=== PATIENT | male | born 1955 | race Caucasian/White ===

== ENCOUNTER 2021-08-03 19:28 | Emergency (ER) | payer MEDICARE, OTHER ==
[~2021-08-03] VITALS: Ht 185.4 cm; Wt 88.6 kg
[2021-08-03 19:30] VITALS: BP 156/99
--- NOTE | 2021-08-03 19:57 | PHYS DOC ---
Past History Past Medical History: High Cholesterol, Hypertension Adult General Chief Complaint Chief Complaint: HEADACHE HPI HPI Patient is a 66-year-old male presenting for weakness and fatigue. Patient has history of high blood pressure and high cholesterol only and [facility] States he was unvaccinated against COVID-19 and tested +18 days ago. Reports he had significant URI symptoms that self improved after approximately 10 days. Reports he had recurrence of such upper respiratory symptoms past 72 hours in addition to new onset fatigue, weakness and exertional dyspnea. Reports he has just been more fatigued than usual, admits he is typically fully functional and able to perform activities of daily living but now, states he gets extremely winded walking 100 yards to his mailbox which is not typical for him. He has no other significant medical issues, no ot her recent changes in baseline health or medications at home. He has no history of heart disease or provocative cardiac work-up. Today, he presents with weakness, fatigue, dull headache, nasal congestion, sore throat, postnasal drip, and mild nausea Review of Systems Review of Systems Fourteen body systems of review of systems have been reviewed. See HPI for pertinent positives and negative responses, other jarvis all other systems are negative, non-pertinent or non-contributory Physical Exam Physical Exam General: Appears well, non toxic, and comfortable Skin: Warm, dry. Normal for ethnicity. HEENT: Atraumatic. PERRLA. Rhinorrhea and congestion. Nasal turbinates boggy b/l. Moist mucous membranes. Uvula midline but does appear erythematous. Maintaining secretions. No phonation changes. Neck: Trachea midline. Normal ROM. No stridor. No nuchal rigidity or meningeal signs Respiratory: Normal WOB. CTAB w/o w/r/r. No tachypnea. Cardiovascular: Regular rate and rhythm. Normal peripheral perfusion. Abdomen: Soft. Non tender. No distension. Back: Normal ROM. Musculoskeletal: No swelling or deformity. Neuro: Alert and oriented x 4. MAEE. Lymph: No cervical LAD. Psych: Normal affect and mood. Current Patient Data Lab Results Laboratory Tests Test 08/03/21 21:10 White Blood Count 6.1 x10^3/uL Red Blood Count 3.97 x10^6/uL Hemoglobin 12.8 g/dL Hematocrit 36.5 % Mean Corpuscular Volume 92 fL Mean Corpuscular Hemoglobin 32 pg Mean Corpuscular Hemoglobin Concent 35 g/dL Red Cell Distribution Width 12.3 % Platelet Count 316 x10^3/uL Neutrophils (%) (Auto) 74 % Lymphocytes (%) (Auto) 16 % Monocytes (%) (Auto) 8 % Eosinophils (%) (Auto) 1 % Basophils (%) (Auto) 1 % Neutrophils # (Auto) 4.5 x10^3uL Lymphocytes # (Auto) 1.0 x10^3/uL Monocytes # (Auto) 0.5 x10^3/uL Eosinophils # (Auto) 0.0 x10^3/uL Basophils # (Auto) 0.0 x10^3/uL Sodium Level 130 mmol/L Potassium Level 4.4 mmol/L Chloride Level 94 mmol/L Carbon Dioxide Level 27 mmol/L Anion Gap 9 Blood Urea Nitrogen 12 mg/dL Creatinine 0.7 mg/dL Estimated GFR (Cockcroft-Gault) 113.2 BUN/Creatinine Ratio 17 Glucose Level 116 mg/dL Calcium Level 8.4 mg/dL Total Bilirubin 1.1 mg/dL Aspartate Amino Transf (AST/SGOT) 43 U/L Alanine Aminotransferase (ALT/SGPT) 102 U/L Alkaline Phosphatase 102 U/L Troponin I Quantitative < 0.017 ng/mL [id number]-[id number] Natriuretic Peptide 59 pg/mL Total Protein 6.4 g/dL Albumin 3.2 g/dL Albumin/Globulin Ratio 1.0 Current Medications Medications (Trade) Dose Ordered Sig/Pop Route PRN Reason Start Time Stop Time Status Last Admin Dose Admin Acetaminophen (Tylenol) 650 mg 1X ONCE PO 08/03/21 20:45 08/03/21 20:46 DC 08/03/21 21:06 Aspirin (Charli Aspirin) 325 mg 1X ONCE PO 08/03/21 20:45 08/03/21 20:46 DC 08/03/21 21:06 Ondansetron HCl (Zofran) 4 mg 1X ONCE IVP 08/03/21 21:00 08/03/21 21:01 DC 08/03/21 21:07 Sodium Chloride 1,000 ml @ 1,000 mls/hr 1X ONCE IV 08/03/21 21:30 08/03/21 22:29 DC 08/03/21 21:28 EKG EKG EKG ordered and interpreted by myself at 2103 hrs. as sinus rhythm at 54 bpm, unremarkable intervals, left axis deviation, no obvious ischemic findings, no STEMI] Radiology/Procedures Radiology/Procedures EXAMINATION: Chest radiograph. VIEWS: Single view COMPARISON: None INDICATION:66 years, Male, dyspnea. FINDINGS: Normal cardiomediastinal silhouette. Patchy airspace opacity in the left. No pleural effusion or pneumothorax. No acute osseous process. IMPRESSION: Patchy airspace opacity in the left lung base, differential includes atelectatic changes versus infiltrate. Electronically signed by: Fariba Johnston MD (08/03/2021 8:53 PM) [facility] Heart Score C/O Chest Pain: No HEART Score for Chest Pain: HEART Score for Chest Pain Response (Comments) Value History Slighlty/Non-Suspicious 0 ECG Normal 0 Age >45 - < 65 1 Risk Factors 1 or 2 Risk Factors 1 Troponin < Normal Limit 0 Total 2 Risk Factors: Risk Factors: DM, Current or recent (<one month) smoker, HTN, HLP, family history of CAD, obesity. Risk Scores: Risk Factors: DM, Current or recent (<one month) smoker, HTN, HLP, family history of CAD, obesity. Course & Med Decision Making Course & Med Decision Making ABCs unremarkable HPI, physical exam and comprehensive ER work-up nonconcerning for any emergent or surgical issues I disclosed likely diagnosis of left lower lobe pneumonia that is early in onset in a patient who is recently overcoming Covid Joint decision made to start antibiotic therapy with continued supportive care practices and close outpatient follow-up I discussed little indication for further diagnostic work-up and/or need for hospitalization today. Patient and significant other at bedside agreed Strict return precautions discussed and verbally understood by patient and , all questions and concerns addressed prior to ER departure Dragon Disclaimer Dragon Disclaimer This electronic medical record was generated, in whole or in part, using a voice recognition dictation system. Departure Departure: Impression: Primary Impression: Left lower lobe pneumonia Additional Impression: [id number] syndrome Disposition: HOME / SELF CARE / HOMELESS Condition: STABLE Referrals: NON,STAFF (PCP) Additional Instructions: As discussed prior to your departure, your vitals, physical exam and comprehensive ER work-up were nonconcerning for any emergent surgical issues. I discussed most likely diagnosis of early onset left lower lobe pneumonia. Joint decision made to treat with antibiotic therapy. You are prescribed azithromycin which is an antibiotic which she should take as scheduled to completion. You are also prescribed ondansetron, Zofran that should be used sparingly for nausea . These avoid using these 2 medications at the same time. As discussed you need to contact your primary care provider first thing Thursday to review ER visit today and need for close outpatient follow-up. If any concerning signs or symptoms present in the meantime please do not hesitate to come back for repeat evaluation. It was a pleasure to take care of you and I wish you the best going forward Scripts Azithromycin (AZITHROMYCIN TABLET) 250 Mg Tablet 1 PKG PO UD for PNEUMONIA for 4 Days, #4 TAB 0 Refills 2 the first day followed by 1 for days 2-5 Prov: BECKI CLAUDIO DO 08/03/21 Ondansetron (ONDANSETRON ODT) 4 Mg Tab.rapdis 1 TAB PO PRN Q6-8HRS for NAUSEA, #16 TAB Prov: BECKI CLAUDIO DO 08/03/21 Problem Qualifiers BECKI CLAUDIO DO Aug 03, 2021 19:57
--- NOTE | 2021-08-03 20:55 | RAD ---
EXAMINATION: Chest radiograph. VIEWS: Single view COMPARISON: None INDICATION:66 years, Male, dyspnea. FINDINGS: Normal cardiomediastinal silhouette. Patchy airspace opacity in the left. No pleural effusion or pneu mothorax. No acute osseous process. IMPRESSION: Patchy airspace opacity in the left lung base, differential includes atelectatic changes versus infil trate. Electronically signed by: Fariba Johnston MD (08/03/2021 8:53 PM) [facility]
[2021-08-03] MEDS: ACETAMINOPHEN 325 MG TABLET PO ONE (21:06)
[2021-08-03] MEDS: ASPIRIN 325 MG TABLET PO ONE (21:06)
[2021-08-03] MEDS: ONDANSETRON PF 4 MG/2 ML VIAL. IVP ONE (21:07)
[2021-08-03] MEDS: IV NORMAL SALINE 1,000ML 1,000 ML IV ONE (21:28)
[2021-08-03 21:43] LABS: BASO % 1 % (0-3); EOS % 1 % (0-3); HEMATOCRIT 36.5 % (39.0-53.0); HEMOGLOBIN 12.8 g/dL (13.0-17.5); LYMPH % 16 % (24-48); MEAN CORPUSCULAR HEMOGLOBIN 32 pg (25-35); MEAN CORPUSCULAR HGB CONC 35 g/dL (31-37); MEAN CORPUSCULAR VOLUME 92 fL (79-100); MONO # 0.5 x10^3/uL (0.0-1.1); MONO % 8 % (0-9); NEUT # 4.5 x10^3uL (1.8-7.7); NEUT % 74 % (31-73); PLATELET COUNT 316 x10^3/uL (140-400); RED BLOOD COUNT 3.97 x10^6/uL (4.30-5.70); RED CELL DISTRIBUTION WIDTH 12.3 % (11.5-14.5); WHITE BLOOD COUNT 6.1 x10^3/uL (4.0-11.0)
[2021-08-03 21:53] LABS: CALCIUM 8.4 mg/dL (8.5-10.1); CREATININE 0.7 mg/dL (0.7-1.3); GFR 113.2; POTASSIUM 4.4 mmol/L (3.5-5.1)
[2021-08-03 22:05] LABS: ALBUMIN 3.2 g/dL (3.4-5.0); TOTAL BILIRUBIN 1.1 mg/dL (0.2-1.0); TOTAL PROTEIN 6.4 g/dL (6.4-8.2)
[2021-08-03] MEDS ORDERED: AZIT250T6 PO (22:48)
[2021-08-03] MEDS ORDERED: ONDA4TAB12 PO (22:48)
[2021-08-03] MEDS: ONDANSETRON 4MG ODT 4TABLET STARTPACK. PO ONE (23:00)
[2021-08-03] MEDS: AZITHROMYCIN 250 MG TABLET. PO ONE (23:03)
--- NOTE | 2021-08-03 23:35 | EKG ---
[address] [address] Test Date: 2021-08-03 Test Time: 20:57:05 Pat Name: SHARON LOPEZ Department: Room: Gender: M Shoulder Sawyer: : 1955 Requested By: BECKI CLAUDIO Order Number: [id number] Reading MD: Gurpreet Guillen Measurements Intervals [place] Rate: 54 P: 23 CA: 158 QRS: -21 QRSD: 90 T: 26 QT: 434 QTc: 413 Interpretive Statements SINUS RHYTHM LEFTWARD AXIS Electronically Signed On 08-08-2021 12:50:13 CDT by Gurpreet Guillen
== END 2021-08-03 23:50 | disposition home or self-care (01) ==
LOC: ER 19:28
DX: J18.1 Lobar pneumonia, unspecified organism (principal); U09.9 Post COVID-19 condition, unspecified
CPT/HCPCS: 36415; 71045; 80053; 83880; 84484; 85025; 93005; 96361; 96374; 99285; J2405; J7030; Q0162